=== PATIENT | male | born 1970 | race Caucasian/White ===

== ENCOUNTER 2023-11-06 06:56 | Emergency (ER) | payer BC ==
[2023-11-06] MEDS ORDERED: Ondansetron PF 4 MG/2 ML Vial ONE (07:22)
[2023-11-06] MEDS ORDERED: Ketorolac Tromethamine 30 MG (1 mL) VIAL ONE (07:22)
[2023-11-06 07:30] LABS: Blood, Urine Negative (Negative); Clarity Clear (Clear); Ketone, Urine 40 mg/dL (Negative); Leukocyte Negative (Negative); Protein, Urine (Dipstick) > or equal to 300 mg/dL (Neg-Trace); Specific Gravity, Urine 1.025 (1.005-1.030); Urobilinogen > or = 8.0 mg/dL (Less than 2)
[2023-11-06 07:39] LABS: Band 4 % (5-11); Hematocrit 47.9 % (42.0-52.0); Hemoglobin 16.2 g/dL (14.0-18.0); Lymphocytes 4 % (21-51); MDiff Complete? YES; Mean Corpuscular HGB CONC 33.8 g/dL (32.0-36.0); Mean Corpuscular Hemoglobin 31.3 pg (27.0-31.0); Mean Corpuscular Volume 92.6 fl (78.0-98.0); Mean Platelet Volume 6.7 fL (7.4-10.4); Monocytes 1 % (0-10); Neutrophil 91 % (42-75); Platelet Count 278 10x3/uL (130-400); RBC Distribution Width 13.2 % (11.5-14.5); Red Blood Cell (RBC) Count 5.18 mill/uL (4.70-6.10); White Blood Cell (WBC) Count 22.6 10x3/uL (4.8-10.8)
[2023-11-06 07:41] LABS: ALT (SGPT) 27 U/L (8-55); AST (SGOT) 32 U/L (5-34); Albumin 4.2 g/dL (3.5-5.0); Alkaline Phosphatase 111 U/L (40-110); Anion Gap 20 mmol/L (10-20); BUN (Urea Nitrogen) 13 mg/dL (8.4-25.7); Bilirubin, Total 2.8 mg/dL (0.2-1.2); CK (CPK) 133 U/L (30-200); Calc. Creatinine Clearance 0 mL/min (70-130); Calcium 9.1 mg/dL (7.8-10.44); Carbon Dioxide 22 mmol/L (22-29); Chloride 96 mmol/L (98-107); Estimated GFR 85; Globulin 3.6 g/dL (2.4-3.5); Glucose 117 mg/dL (70-105); Lipase 508 U/L (8-78); Potassium 3.7 mmol/L (3.5-5.1); Protein, Total 7.8 g/dL (6.0-8.3); Sodium 134 mmol/L (136-145)
[2023-11-06 07:43] LABS: Bilirubin Unable to Interpret (Negative); Nitrite Unable to Interpret (Negative)
[2023-11-06 07:45] LABS: Bacteria/HPF None Seen HPF (None Seen); CAUTI Indications for Culture Dysuria,urgency,freq; Glucose, Urine (Dipstick) Unable to Interpret mg/dL (Negative); Mucous/LPF 2+ LPF (<2+); RBC/HPF 0-3 HPF (0-3); Squamous Epithelial 0-3 HPF (0-3); WBC/HPF 0-3 HPF (0-3)
[2023-11-06 07:46] LABS: Urine Culture Reflex No No
[2023-11-06] MEDS ORDERED: Sodium Chloride 0.9% 100 ML ONE (08:38)
[2023-11-06] MEDS ORDERED: Piperacillin/Tazobactam 4.5 GM VIAL ONE (08:39)
[2023-11-06 10:15] LABS: Lactic Acid 1.1 mmol/L (0.5-2.2)
[2023-11-06] MEDS ORDERED: Iopamidol 370 76% 100 ML VIAL ONE (12:08)
[2023-11-06] MEDS ORDERED: Multivit, Adult Inj 10 ML VIAL ONE (13:43)
[2023-11-06] MEDS ORDERED: Folic Acid 5 MG/ML MDV ONE (13:43)
[2023-11-06] MEDS ORDERED: Thiamine HCl 200 MG/2 ML VIAL ONE (13:43)
== END 2023-11-06 10:20 | disposition short-term general hospital (02) ==
LOC: BURERS 06:56
DX: K85.90 Acute pancreatitis without necrosis or infection, unspecified (principal)
CPT/HCPCS: 36415; 74177; 80053; 81001; 82550; 83605; 83690; 85025; 87040; 93005; 96361; 96365; 96367; 96375; J1885; J2405; J2543; J3411; J3490; Q9967